=== PATIENT | male | born 1945 | race Caucasian/White ===

== ENCOUNTER → 2016-05-15 | Outpatient (REF) | payer MEDICARE ==
[~2016-05-15] MED LIST: /AMLO25TA PO; /PANT40TA PO; BISAC5TA PO; COLA50CA3 PO; LISI10TA4 PO; METF1000 PO; SENO8.6T9 PO; TAMS0.4C2 PO; ZEST10TA4 PO
== END ==
LOC: M LAB REF 12:39
PROVIDERS: ATTEND Internal Medicine Medical Oncology
DX: C61 Malignant neoplasm of prostate (principal)

== ENCOUNTER → 2016-06-12 | Outpatient (REF) | payer MEDICARE | LOC: M LAB REF 12:11 | PROVIDERS: ATTEND Internal Medicine Medical Oncology | DX: C61 Malignant neoplasm of prostate (principal) ==

== ENCOUNTER → 2016-06-26 | Outpatient (REF) | payer MEDICARE ==
[2016-06-26 15:59] LABS: ALBUMIN 3.3 GM/DL (3.2-5.2); ALBUMIN/GLOBULIN RATIO 0.85 (1.00-1.93); ALKALINE PHOSPHATASE 111 U/L (45-117); ALT/SGPT 13 U/L (12-78); ANION GAP 9 MEQ/L (8-16); AST/SGOT 11 U/L (15-37); BILIRUBIN,TOTAL 0.4 MG/DL (0.2-1.0); BLOOD UREA NITROGEN 26 MG/DL (7-18); CALCIUM LEVEL 8.8 MG/DL (8.8-10.2); CARBON DIOXIDE LEVEL 25 MEQ/L (21-32); CHLORIDE LEVEL 104 MEQ/L (98-107); CHOLESTEROL LEVEL 149 MG/DL (<200); CREATININE FOR GFR 1.18 MG/DL (0.70-1.30); GLOMERULAR FILTRATION RATE > 60.0 (>42); GLUCOSE, FASTING 174 MG/DL (83-110); POTASSIUM SERUM 4.9 MEQ/L (3.5-5.1); SODIUM LEVEL 138 MEQ/L (136-145); TOTAL PROTEIN 7.2 GM/DL (6.4-8.2); TRIGLYCERIDES LEVEL 153 MG/DL (<150)
== END ==
LOC: M SFHCSACK 08:16
PROVIDERS: ATTEND Physician Assistant
DX: I10 Essential (primary) hypertension (principal); E11.69 Type 2 diabetes mellitus with other specified complication; E78.2 Mixed hyperlipidemia

== ENCOUNTER → 2016-07-10 | Outpatient (REF) | payer MEDICARE ==
[2016-07-10 13:26] LABS: RETIC HEMOGLOBIN CONTENT CHr 31.9 PG (24-36); RETICULOCYTE % ADVIA2120 7.3 % (0.5-1.5)
== END ==
LOC: M LAB REF 12:45
PROVIDERS: ATTEND Internal Medicine Medical Oncology
DX: C61 Malignant neoplasm of prostate (principal)

== ENCOUNTER → 2016-08-10 | Outpatient (REF) | payer MEDICARE | LOC: M LAB REF 13:10 | PROVIDERS: ATTEND Internal Medicine Medical Oncology | DX: C61 Malignant neoplasm of prostate (principal) ==

== ENCOUNTER → 2016-09-07 | Outpatient (REF) | payer MEDICARE | LOC: M LAB REF 13:14 | PROVIDERS: ATTEND Internal Medicine Medical Oncology | DX: C61 Malignant neoplasm of prostate (principal) ==

== ENCOUNTER → 2016-10-05 | Outpatient (REF) | payer MEDICARE | LOC: M LAB REF 12:15 | PROVIDERS: ATTEND Internal Medicine Medical Oncology | DX: C61 Malignant neoplasm of prostate (principal) ==

== ENCOUNTER → 2016-10-23 | Outpatient (REF) | payer MEDICARE ==
[~2016-10-23] MED LIST changes: +ASPI81TA85 PO; +ENZALUTAMIDE PO; +HCTZ PO; +LUPR45IN IM; -METF1000 PO; +METF10004 PO; +XGEVINJ SC; +[UNRECOGNIZED DRUG - OTHER]; +[UNRECOGNIZED DRUG - OTHER] IM
[2016-10-23 15:46] LABS: ALBUMIN 3.4 GM/DL (3.2-5.2); ALBUMIN/GLOBULIN RATIO 0.83 (1.00-1.93); BILIRUBIN,TOTAL 0.2 MG/DL (0.2-1.0); CALCIUM LEVEL 8.4 MG/DL (8.8-10.2); CREATININE FOR GFR 1.46 MG/DL (0.70-1.30); GLOMERULAR FILTRATION RATE 50.8 (>42); TOTAL PROTEIN 7.5 GM/DL (6.4-8.2)
[2016-10-23 16:03] LABS: POTASSIUM SERUM 5.2 MEQ/L (3.5-5.1)
== END ==
LOC: M SFHCSACK 09:35
PROVIDERS: ATTEND Physician Assistant
DX: I10 Essential (primary) hypertension (principal); E11.69 Type 2 diabetes mellitus with other specified complication; E78.2 Mixed hyperlipidemia

== ENCOUNTER → 2016-11-02 | Outpatient (REF) | payer MEDICARE | LOC: M LAB REF 12:53 | PROVIDERS: ATTEND Internal Medicine Medical Oncology | DX: C61 Malignant neoplasm of prostate (principal) ==

== ENCOUNTER → 2016-11-30 | Outpatient (REF) | payer MEDICARE | LOC: M LAB REF 09:59 | PROVIDERS: ATTEND Internal Medicine Medical Oncology | DX: C61 Malignant neoplasm of prostate (principal); D64.9 Anemia, unspecified ==

== ENCOUNTER → 2016-12-01 | Outpatient (CLI) | payer MEDICARE ==
[~2016-12-01] MED LIST changes: +ACETAMINOPHEN TAB 650MG DOSE (2X325MG) As Ordered ONE; +ACETAMINOPHEN TAB 650MG DOSE (2X325MG) PO SCH; +diphenhydrAMINE 25 MG CAP As Ordered ONE; +diphenhydrAMINE 25 MG CAP PO SCH
== END ==
LOC: M RROUT 10:03
PROVIDERS: ATTEND Internal Medicine Medical Oncology
DX: D64.9 Anemia, unspecified (principal)
CPT/HCPCS: 36430; P9016

== ENCOUNTER → 2016-12-28 | Outpatient (REF) | payer MEDICARE ==
[~2016-12-28] MED LIST changes: -ACETAMINOPHEN TAB 650MG DOSE (2X325MG) As Ordered ONE; -ACETAMINOPHEN TAB 650MG DOSE (2X325MG) PO SCH; -diphenhydrAMINE 25 MG CAP As Ordered ONE; -diphenhydrAMINE 25 MG CAP PO SCH
== END ==
LOC: M LAB REF 10:01
PROVIDERS: ATTEND Internal Medicine Medical Oncology
DX: C61 Malignant neoplasm of prostate (principal)

== ENCOUNTER → 2017-01-25 | Outpatient (REF) | payer MEDICARE | LOC: M LAB REF 12:49 | PROVIDERS: ATTEND Internal Medicine Medical Oncology | DX: C61 Malignant neoplasm of prostate (principal) ==

== ENCOUNTER → 2017-01-30 | Outpatient (REF) | payer MEDICARE | LOC: M LAB REF 12:34 | PROVIDERS: ATTEND Internal Medicine Medical Oncology | DX: C61 Malignant neoplasm of prostate (principal); D64.9 Anemia, unspecified ==

== ENCOUNTER 2017-01-31 13:15 | Outpatient (CLI) | payer MEDICARE ==
[~2017-01-31] VITALS: Ht 172.7 cm; Wt 84.1 kg
[~2017-01-31 13:15] MED LIST changes: -ASPI81TA85 PO; -ENZALUTAMIDE PO; -LUPR45IN IM; -XGEVINJ SC; -[UNRECOGNIZED DRUG - OTHER]
[2017-01-31 13:35] VITALS: BP 159/78
[2017-01-31] MEDS ORDERED: diphenhydrAMINE 25 MG CAP PO ONE (13:45)
[2017-01-31] MEDS ORDERED: ACETAMINOPHEN TAB 650MG DOSE (2X325MG) PO ONE (13:45)
[2017-01-31] MEDS ORDERED: ENZALUTAMIDE PO (14:06)
[2017-01-31] MEDS ORDERED: LUPR45IN IM (14:06)
[2017-01-31] MEDS ORDERED: ASPI81TA85 PO (14:06)
[2017-01-31] MEDS ORDERED: XGEVINJ SC (14:06)
[2017-01-31] MEDS ORDERED: [UNRECOGNIZED DRUG - OTHER] (14:06)
[2017-01-31 16:45] VITALS: BP 160/72
[2017-01-31 18:20] VITALS: BP 159/78
== END 2017-01-31 19:00 | disposition home or self-care (01) ==
LOC: M OPCLI4PR 13:15 → M PED 13:30 → M OPCLI4PR 19:00
PROVIDERS: ATTEND Internal Medicine Medical Oncology
DX: D64.9 Anemia, unspecified (principal); C61 Malignant neoplasm of prostate; Z79.82 Long term (current) use of aspirin; Z79.899 Other long term (current) drug therapy
CPT/HCPCS: 36430; P9016

== ENCOUNTER → 2017-03-14 | Outpatient (REF) | payer MEDICARE ==
[~2017-03-14] MED LIST changes: +ASPI81TA85 PO; +ENZALUTAMIDE PO; +LUPR45IN IM; +XGEVINJ SC; +[UNRECOGNIZED DRUG - OTHER]
[2017-03-14 15:07] LABS: BASO % 0.4 % (0.0-1.0); EOS # 0.2 10^3/uL (0.0-0.50); EOS % 2.6 % (0.0-3.0); IMMATURE GRANULOCYTE % 0.3 % (0-0); LYMPH # 1.5 10^3/uL (1.5-4.5); LYMPH % 20.8 % (24.0-44.0); MEAN CORPUSCULAR HEMOGLOBIN 24.7 pg (27.0-33.0); MEAN CORPUSCULAR HGB CONC 30.6 g/dl (32.0-36.5); MEAN CORPUSCULAR VOLUME 80.5 fl (80.0-96.0); MONO # 0.6 10^3/uL (0.0-0.8); MONO % 8.4 % (0.0-5.0); NEUTROPHILS % 67.5 % (36.0-66.0); PLATELET COUNT, AUTOMATED 346 10^3/uL (150-450); RED CELL DISTRIBUTION WIDTH 17.8 % (11.5-14.5); WHITE BLOOD COUNT 7.4 10^3/uL (4.0-10.0)
[2017-03-14 15:21] LABS: ALBUMIN 3.3 GM/DL (3.2-5.2); ALBUMIN/GLOBULIN RATIO 0.8 (1.00-1.93); BILIRUBIN,TOTAL 0.2 MG/DL (0.2-1.0); CALCIUM LEVEL 8.4 MG/DL (8.8-10.2); CREATININE FOR GFR 1.43 MG/DL (0.70-1.30); POTASSIUM SERUM 4.9 MEQ/L (3.5-5.1); TOTAL PROTEIN 7.4 GM/DL (6.4-8.2)
== END ==
LOC: M SFHCSACK 08:34
PROVIDERS: ATTEND Physician Assistant
DX: I10 Essential (primary) hypertension (principal); E11.9 Type 2 diabetes mellitus without complications; E78.2 Mixed hyperlipidemia
CPT/HCPCS: 36415; 80053; 80061; 82043; 83036; 85025; G0463

== ENCOUNTER → 2017-03-22 | Outpatient (REF) | payer MEDICARE ==
[2017-03-22 14:36] LABS: PERCENT SATURATION 8.3 % (19.7-50.0)
== END ==
LOC: M LAB REF 13:44
PROVIDERS: ATTEND Internal Medicine Medical Oncology
DX: C61 Malignant neoplasm of prostate (principal)

== ENCOUNTER → 2017-04-26 | Outpatient (REF) | payer MEDICARE ==
[2017-04-26 14:10] LABS: TESTOSTERONE 14 NG/DL (241-827)
[2017-04-26 14:11] LABS: PROSTATIC SPECIFIC AG MONITOR 7.22 NG/ML (< 4.0)
== END ==
LOC: M LAB REF 13:35
DX: C61 Malignant neoplasm of prostate (principal)
CPT/HCPCS: 84403

== ENCOUNTER → 2017-05-24 | Outpatient (REF) | payer MEDICARE ==
[2017-05-24 16:07] LABS: PROSTATIC SPECIFIC AG MONITOR 8.94 NG/ML (< 4.0)
== END ==
LOC: M LAB REF 13:31
DX: C61 Malignant neoplasm of prostate (principal)
CPT/HCPCS: 84153

== ENCOUNTER → 2017-06-18 | Outpatient (REF) | payer MEDICARE ==
[2017-06-18 14:13] LABS: BASO % 0.5 % (0.0-1.0); EOS # 0.2 10^3/uL (0.0-0.50); EOS % 2.8 % (0.0-3.0); HEMATOCRIT 28.6 % (42.0-52.0); IMMATURE GRANULOCYTE % 0.3 % (0-3.0); LYMPH # 1.3 10^3/uL (1.5-4.5); LYMPH % 20.5 % (24.0-44.0); MEAN CORPUSCULAR HEMOGLOBIN 24.7 pg (27.0-33.0); MEAN CORPUSCULAR HGB CONC 31.5 g/dl (32.0-36.5); MEAN CORPUSCULAR VOLUME 78.6 fl (80.0-96.0); MONO # 0.5 10^3/uL (0.0-0.8); MONO % 8.1 % (0.0-5.0); NEUTROPHILS # 4.4 10^3/uL (1.8-7.7); NEUTROPHILS % 67.8 % (36.0-66.0); PLATELET COUNT, AUTOMATED 301 10^3/uL (150-450); RED BLOOD COUNT 3.64 10^6/uL (4.30-6.10); RED CELL DISTRIBUTION WIDTH 17.8 % (11.5-14.5); WHITE BLOOD COUNT 6.4 10^3/uL (4.0-10.0)
[2017-06-18 14:27] LABS: ALBUMIN 3.4 GM/DL (3.2-5.2); ALBUMIN/GLOBULIN RATIO 0.77 (1.00-1.93); ALKALINE PHOSPHATASE 110 U/L (45-117); ALT/SGPT 12 U/L (12-78); ANION GAP 7 MEQ/L (8-16); AST/SGOT 11 U/L (7-37); BILIRUBIN,TOTAL 0.2 MG/DL (0.2-1.0); BLOOD UREA NITROGEN 24 MG/DL (7-18); CALCIUM LEVEL 8.2 MG/DL (8.8-10.2); CARBON DIOXIDE LEVEL 28 MEQ/L (21-32); CHLORIDE LEVEL 100 MEQ/L (98-107); GLOMERULAR FILTRATION RATE 53.2 (>42); GLUCOSE, FASTING 119 MG/DL (70-100); POTASSIUM SERUM 4.9 MEQ/L (3.5-5.1); SODIUM LEVEL 135 MEQ/L (136-145); TOTAL PROTEIN 7.8 GM/DL (6.4-8.2)
[2017-06-18 14:29] LABS: TOTAL 25(OH) VITAMIN D 13.1 NG/ML (30.0-100.0); VITAMIN B12 LEVEL 299 PG/ML (247-911)
[2017-06-18 14:30] LABS: ESTIMATED AVERAGE GLUCOSE 140 MG/DL (60-110); HEMOGLOBIN A1c 6.5 %
== END ==
LOC: M SFHCSACK 08:20
DX: I10 Essential (primary) hypertension (principal); E78.2 Mixed hyperlipidemia; E11.9 Type 2 diabetes mellitus without complications; Z13.21 Encounter for screening for nutritional disorder; E55.9 Vitamin D deficiency, unspecified
CPT/HCPCS: 82607

== ENCOUNTER → 2017-06-21 | Outpatient (REF) | payer MEDICARE ==
[2017-06-21 14:39] LABS: PROSTATIC SPECIFIC AG MONITOR 9.85 NG/ML (< 4.0)
== END ==
LOC: M LAB REF 13:33
DX: C61 Malignant neoplasm of prostate (principal)
CPT/HCPCS: 84153

== ENCOUNTER → 2017-07-19 | Outpatient (REF) | payer MEDICARE | LOC: M LAB REF 13:23 | DX: C61 Malignant neoplasm of prostate (principal) | CPT/HCPCS: 84153 ==

== ENCOUNTER → 2017-07-26 | Outpatient (CLI) | payer MEDICARE ==
[~2017-07-26] MED LIST changes: -/AMLO25TA PO; -/PANT40TA PO; -ASPI81TA85 PO; -BISAC5TA PO; -COLA50CA3 PO; -ENZALUTAMIDE PO; +GASTROGRAFIN SOLUTION 30ML (Q9963) As Ordered; -HCTZ PO; +ISOVUE-370 76% 100ML VIAL (Q9967) As Ordered; -LISI10TA4 PO; -LUPR45IN IM; -METF10004 PO; -SENO8.6T9 PO; -TAMS0.4C2 PO; -XGEVINJ SC; -ZEST10TA4 PO; -[UNRECOGNIZED DRUG - OTHER]; -[UNRECOGNIZED DRUG - OTHER] IM
== END ==
LOC: M RAD 08:28
DX: C61 Malignant neoplasm of prostate (principal)
CPT/HCPCS: Q9963

== ENCOUNTER → 2017-08-02 | Outpatient (REF) | payer MEDICARE | LOC: M LAB REF 13:45 | DX: C61 Malignant neoplasm of prostate (principal) | CPT/HCPCS: 84153 ==

== ENCOUNTER 2017-09-20 12:29 | Outpatient (CLI) | payer MEDICARE ==
[2017-09-20] MEDS: diphenhydrAMINE 25 MG CAP PO ×2 (14:32)
[2017-09-20] MEDS: ACETAMINOPHEN TAB 650MG DOSE (2X325MG) PO ×2 (14:32)
[2017-09-20 16:45] LABS: IMMEDIATE SPIN CROSSMATCH 1 2
== END 2017-09-20 19:00 | disposition home or self-care (01) ==
LOC: M INFU 12:29
DX: C61 Malignant neoplasm of prostate (principal); C80.1 Malignant (primary) neoplasm, unspecified; D63.0 Anemia in neoplastic disease; Z79.82 Long term (current) use of aspirin; Z79.899 Other long term (current) drug therapy; E11.9 Type 2 diabetes mellitus without complications
CPT/HCPCS: 36430

== ENCOUNTER → 2017-10-03 | Outpatient (REF) | payer MEDICARE ==
[2017-10-03 13:16] LABS: FERRITIN 13 NG/ML (26-388); IRON (FE) 41 UG/DL (65-175); TOTAL IRON BINDING CAPACITY 343 UG/DL (250-450)
== END ==
LOC: M LAB REF 12:49
DX: C61 Malignant neoplasm of prostate (principal); C79.51 Secondary malignant neoplasm of bone
CPT/HCPCS: 83550

== ENCOUNTER → 2017-10-25 | Outpatient (REF) | payer MEDICARE | LOC: M LAB REF 13:19 | DX: C61 Malignant neoplasm of prostate (principal); C79.51 Secondary malignant neoplasm of bone | CPT/HCPCS: 84153 ==

== ENCOUNTER → 2017-10-30 | Outpatient (REF) | payer MEDICARE ==
[2017-10-30 13:45] LABS: APPEARANCE, URINE CLEAR (CLEAR); BACTERIA, URINE AUTO NEGATIVE (NEGATIVE); BILIRUBIN, URINE AUTO NEGATIVE (NEGATIVE); BLOOD, URINE BLOOD 1+ (NEGATIVE); COLOR, URINE STRAW (YELLOW); GLUCOSE, URINE (UA) AUTO NEGATIVE (NEGATIVE); KETONE, URINE AUTO NEGATIVE (NEGATIVE); LEUKOCYTE ESTERASE, URINE AUTO NEGATIVE (NEGATIVE); NITRITE, URINE AUTO NEGATIVE (NEGATIVE); PROTEIN, URINE AUTO 1+ mg/dL (NEGATIVE); RBC, URINE AUTO 6 /HPF (0-3); SPECIFIC GRAVITY URINE AUTO 1.006 (1.002-1.035); SQUAMOUS EPITHELIAL CELL UR AU 0 /HPF (0-6); UROBILINOGEN, URINE AUTO 0.2 mg/dL (0.0-2.0); WBC, URINE AUTO 2 /HPF (0-3)
== END ==
LOC: M LAB REF 13:25
DX: C79.51 Secondary malignant neoplasm of bone (principal); C61 Malignant neoplasm of prostate
CPT/HCPCS: 81001

== ENCOUNTER → 2017-11-01 | Outpatient (REF) | payer MEDICARE | LOC: M LAB REF 17:27 | DX: N18.5 Chronic kidney disease, stage 5 (principal); N39.0 Urinary tract infection, site not specified | CPT/HCPCS: 87086 ==

== ENCOUNTER → 2017-11-02 | Outpatient (CLI) | payer MEDICARE | LOC: M RAD 13:54 | DX: C61 Malignant neoplasm of prostate (principal); N13.30 Unspecified hydronephrosis; R59.0 Localized enlarged lymph nodes | CPT/HCPCS: 74176 ==

== ENCOUNTER 2017-11-14 10:12 | Inpatient (IN) | payer MEDICARE, OTHER ==
[2017-11-14] MEDS: NS 1,000 ML IV (11:01)
[2017-11-14] MEDS: NS 500 ML IV (11:11)
[2017-11-14 11:13] LABS: BASO % 0.4 % (0.0-1.0); EOS # 0.3 10^3/uL (0.0-0.50); EOS % 4.2 % (0.0-3.0); HEMATOCRIT 26.2 % (42.0-52.0); HEMOGLOBIN 8.2 g/dl (13.5-17.5); IMMATURE GRANULOCYTE % 0.3 % (0-3.0); LYMPH # 0.8 10^3/uL (1.5-4.5); LYMPH % 11.5 % (24.0-44.0); MEAN CORPUSCULAR HGB CONC 31.3 g/dl (32.0-36.5); MEAN CORPUSCULAR VOLUME 79.9 fl (80.0-96.0); MONO # 0.4 10^3/uL (0.0-0.8); MONO % 5.2 % (0.0-5.0); NEUTROPHILS # 5.4 10^3/uL (1.8-7.7); NEUTROPHILS % 78.4 % (36.0-66.0); PLATELET COUNT, AUTOMATED 270 10^3/uL (150-450); RED BLOOD COUNT 3.28 10^6/uL (4.30-6.10); RED CELL DISTRIBUTION WIDTH 21.9 % (11.5-14.5); WHITE BLOOD COUNT 6.9 10^3/uL (4.0-10.0)
[2017-11-14 11:35] LABS: INR 1.13; PROTHROMBIN TIME 14.7 SECONDS (12.1-14.4)
[2017-11-14 11:40] LABS: ALBUMIN 2.8 GM/DL (3.2-5.2); ALKALINE PHOSPHATASE 109 U/L (45-117); ALT/SGPT 14 U/L (12-78); ANION GAP 9 MEQ/L (8-16); AST/SGOT 14 U/L (7-37); BILIRUBIN,DIRECT < 0.1 MG/DL (0.0-0.2); BILIRUBIN,TOTAL 0.2 MG/DL (0.2-1.0); BLOOD UREA NITROGEN 70 MG/DL (7-18); CALCIUM LEVEL 5.4 MG/DL (8.8-10.2); CARBON DIOXIDE LEVEL 17 MEQ/L (21-32); CHLORIDE LEVEL 112 MEQ/L (98-107); CK-MB VALUE MASS 1.2 NG/ML (<3.6); CPK CREATINE PHOSPHOKINASE 99 U/L (39-308); GLOMERULAR FILTRATION RATE 8.2 (>42); GLUCOSE, FASTING 92 MG/DL (70-100); LIPASE 134 U/L (73-393); MB/CK RELATIVE INDEX 1.21 (< OR =4); SODIUM LEVEL 138 MEQ/L (136-145); TOTAL PROTEIN 8.4 GM/DL (6.4-8.2); TROPONIN I < 0.02 NG/ML (< 0.10)
[2017-11-14] MEDS: SOD POLYSTYRENE SULFONATE SUSP 15 GM/60 ML UD PO (12:42)
[2017-11-14] MEDS: DEXTROSE 50% 50 ML SYRINGE IV (12:43)
[2017-11-14] MEDS: HumuLIN R (REGULAR) INSULIN (NovoLIN R) **100U/ML** PER UNIT SC (12:43)
[2017-11-14] MEDS: CALCIUM GLUCONATE 1,000 MG in D5W MINI-BAG PLUS 100 ML IV ×2 (12:44→20:22)
[2017-11-14 12:45] LABS: PHOSPHORUS LEVEL 6.9 MG/DL (2.5-4.9)
[2017-11-14] MEDS: SODIUM BICARBONATE 8.4% INJ 50 ML SYRINGE IV (13:13)
[2017-11-14] MEDS ORDERED: DEXTROSE 50% 50 ML SYRINGE IV (13:30)
[2017-11-14] MEDS ORDERED: GLUCOSE 4 GM CHEW TABLET PO (13:30)
[2017-11-14] MEDS ORDERED: GLUCAGON FOR INJ 1 MG VIAL (J1610) SC (13:30)
[2017-11-14] MEDS ORDERED: MORPHINE 4 MG/ML 1ML VIAL/SYRINGE (J2270) IV (13:45)
[2017-11-14] MEDS ORDERED: ACETAMINOPHEN TAB 650MG DOSE (2X325MG) PO (13:45)
[2017-11-14 13:49] LABS: OSMOLALITY URINE 244 MOSM/KG (500-800)
[2017-11-14 13:50] LABS: AMORPHOUS SEDIMENT RFX SMALL (NEGATIVE); KETONE, URINE AUTO RFX NEGATIVE (NEGATIVE); LEUKOCYTE ESTERASE UR AUTO RFX NEGATIVE (NEGATIVE); NITRITE, URINE AUTO RFX NEGATIVE (NEGATIVE); RBC, URINE AUTO RFX 0 /HPF (0-3); SPECIFIC GRAVITY UR AUTO RFX 1.008 (1.002-1.035); SQUAM EPITHELIAL CELL UR AURFX 0 /HPF (0-6); WBC, URINE AUTO RFX 0 /HPF (0-3)
[2017-11-14] MEDS: HYDROMORPHONE HCL 0.5 MG/ 0.5 ML SYRINGE (J1170 PER 1) IV (13:52)
[2017-11-14] MEDS: ONDANSETRON 4MG/2ML VIAL (J2405) IV (13:56)
[2017-11-14 14:14] LABS: CHLORIDE,RANDOM URINE 39 MEQ/L; CREATININE,RANDOM URINE 47.5 MG/DL; POTASSIUM RANDOM URINE 18.6 MEQ/L; SODIUM,RANDOM URINE 46 MEQ/L; TOTAL PROTEIN,RANDOM URINE 30.9 MG/DL (0.0-12.0)
[2017-11-14] MEDS: SODIUM BICARBONATE 100 MEQ in D5W 1,000 ML IV (14:37)
[2017-11-14 15:37] LABS: ANION GAP 10 MEQ/L (8-16); BLOOD UREA NITROGEN 70 MG/DL (7-18); CALCIUM LEVEL 5.5 MG/DL (8.8-10.2); CARBON DIOXIDE LEVEL 18 MEQ/L (21-32); CHLORIDE LEVEL 115 MEQ/L (98-107); CREATININE FOR GFR 6.89 MG/DL (0.70-1.30); GLOMERULAR FILTRATION RATE 8.5 (>42); GLUCOSE, FASTING 83 MG/DL (70-100); SODIUM LEVEL 143 MEQ/L (136-145)
[2017-11-14 15:38] LABS: POTASSIUM SERUM 5.7 MEQ/L (3.5-5.1)
[2017-11-14] MEDS ORDERED: LIDOCAINE 1% MDV 20ML VIAL As Ordered (16:17)
[2017-11-14] MEDS ORDERED: ISOVUE-300 61% 50ML VIAL (Q9967) As Ordered (16:17)
[2017-11-14] MEDS ORDERED: MIDAZOLAM INJ 2 MG/2 ML VIAL (J2250) As Ordered (16:22)
[2017-11-14] MEDS ORDERED: fentaNYL 100 MCG/2 ML INJECTION (J3010) As Ordered (16:22)
[2017-11-14] MEDS ORDERED: fentaNYL 100 MCG/2 ML INJECTION (J3010) IV (18:00)
[2017-11-14] MEDS ORDERED: ONDANSETRON 4MG/2ML VIAL (J2405) IV (18:00)
[2017-11-14] MEDS: LR 1,000 ML IV (18:00)
[2017-11-14] MEDS: HumaLOG INSULIN (NovoLOG) PER UNIT SC ×2 (18:30→20:24)
[2017-11-14 19:04] LABS: CPK CREATINE PHOSPHOKINASE 106 U/L (39-308); TROPONIN I < 0.02 NG/ML (< 0.10)
[2017-11-14 19:15] LABS: ANION GAP 8 MEQ/L (8-16); BLOOD UREA NITROGEN 71 MG/DL (7-18); CALCIUM LEVEL 5.4 MG/DL (8.8-10.2); CARBON DIOXIDE LEVEL 20 MEQ/L (21-32); CHLORIDE LEVEL 112 MEQ/L (98-107); CREATININE FOR GFR 6.63 MG/DL (0.70-1.30); GLOMERULAR FILTRATION RATE 8.8 (>42); GLUCOSE, FASTING 80 MG/DL (70-100); SODIUM LEVEL 140 MEQ/L (136-145)
[2017-11-14 19:16] LABS: CK-MB VALUE MASS 1.2 NG/ML (<3.6); MB/CK RELATIVE INDEX 1.13 (< OR =4)
[2017-11-14 19:17] LABS: POTASSIUM SERUM 5.8 MEQ/L (3.5-5.1)
[2017-11-14 20:10] LABS: BEDSIDE GLUCOSE 86 MG/DL (83-110)
[2017-11-14] MEDS: SENOKOT S TAB PO (20:24)
[2017-11-14 20:26] LABS: BEDSIDE GLUCOSE 163 MG/DL (83-110)
[2017-11-14] MEDS: TAMSULOSIN 0.4 MG CAP PO (20:27)
[2017-11-14] MEDS: NICOTINE 14 MG/24 HR TRANSDERMAL TD (21:00)
[2017-11-14] MEDS: PERCOCET 5MG/325MG TAB PO (22:33)
[2017-11-15 00:38] LABS: ANION GAP 7 MEQ/L (8-16); BLOOD UREA NITROGEN 63 MG/DL (7-18); CALCIUM LEVEL 5.3 MG/DL (8.8-10.2); CARBON DIOXIDE LEVEL 22 MEQ/L (21-32); CHLORIDE LEVEL 110 MEQ/L (98-107); CPK CREATINE PHOSPHOKINASE 91 U/L (39-308); CREATININE FOR GFR 5.88 MG/DL (0.70-1.30); GLOMERULAR FILTRATION RATE 10.2 (>42); GLUCOSE, FASTING 131 MG/DL (70-100); POTASSIUM SERUM 4.9 MEQ/L (3.5-5.1); SODIUM LEVEL 139 MEQ/L (136-145); TROPONIN I < 0.02 NG/ML (< 0.10)
[2017-11-15 00:39] LABS: CK-MB VALUE MASS 1.2 NG/ML (<3.6); MB/CK RELATIVE INDEX 1.31 (< OR =4)
[2017-11-15] MEDS: SODIUM BICARBONATE 100 MEQ in D5W 1,000 ML IV (00:41)
[2017-11-15] MEDS: CALCIUM GLUCONATE 1,000 MG in D5W MINI-BAG PLUS 100 ML IV ×2 (01:51→05:26)
[2017-11-15] MEDS: PERCOCET 5MG/325MG TAB PO ×3 (03:00→21:11)
[2017-11-15 04:03] LABS: HEMATOCRIT 21.1 % (42.0-52.0); MEAN CORPUSCULAR HEMOGLOBIN 25.1 pg (27.0-33.0); MEAN CORPUSCULAR HGB CONC 31.8 g/dl (32.0-36.5); PLATELET COUNT, AUTOMATED 195 10^3/uL (150-450); RED BLOOD COUNT 2.67 10^6/uL (4.30-6.10); WHITE BLOOD COUNT 7.2 10^3/uL (4.0-10.0)
[2017-11-15 04:04] LABS: HEMOGLOBIN 6.7 g/dl (13.5-17.5)
[2017-11-15 04:23] LABS: ALBUMIN 2.2 GM/DL (3.2-5.2); ANION GAP 9 MEQ/L (8-16); BLOOD UREA NITROGEN 60 MG/DL (7-18); CALCIUM LEVEL 5.3 MG/DL (8.8-10.2); CARBON DIOXIDE LEVEL 23 MEQ/L (21-32); CHLORIDE LEVEL 107 MEQ/L (98-107); CREATININE FOR GFR 5.37 MG/DL (0.70-1.30); GLOMERULAR FILTRATION RATE 11.3 (>42); GLUCOSE, FASTING 152 MG/DL (70-100); MAGNESIUM LEVEL 1.8 MG/DL (1.8-2.4); PHOSPHORUS LEVEL 5.9 MG/DL (2.5-4.9); POTASSIUM SERUM 4.4 MEQ/L (3.5-5.1); SODIUM LEVEL 139 MEQ/L (136-145)
[2017-11-15] MEDS: HYDROMORPHONE HCL 0.5 MG/ 0.5 ML SYRINGE (J1170 PER 1) IV ×3 (05:35→23:32)
[2017-11-15 06:25] LABS: IMMEDIATE SPIN CROSSMATCH 1 2
[2017-11-15 08:10] LABS: BEDSIDE GLUCOSE 130 MG/DL (83-110)
[2017-11-15] MEDS: HumaLOG INSULIN (NovoLOG) PER UNIT SC ×5 (08:13→21:00)
[2017-11-15] MEDS: SENOKOT S TAB PO ×2 (09:00→19:57)
[2017-11-15] MEDS ORDERED: ENTER DRUG NAME HERE (PATIENT'S OWN MED) PO (09:00)
[2017-11-15] MEDS ORDERED: CALCIUM/VITAMIN D 500 MG TAB PO (09:00)
[2017-11-15] MEDS: CALCITRIOL 0.25 MCG CAP (S0169) PO (09:36)
[2017-11-15] MEDS: CALCIUM/VITAMIN D 500 MG TAB PO ×2 (09:36→21:03)
[2017-11-15] MEDS: HEPARIN SOD (PORCINE) 5000 UNITS/ML VIAL SC ×2 (09:37→21:03)
[2017-11-15] MEDS ORDERED: NS 0.45% IV (11:00)
[2017-11-15] MEDS ORDERED: CALCIUM GLUCONATE IV (11:00)
[2017-11-15] MEDS: CALCIUM GLUCONATE IV (11:40)
[2017-11-15] MEDS: NS 0.45% IV (11:40)
[2017-11-15] MEDS: ONDANSETRON 4MG/2ML VIAL (J2405) IV ×2 (11:40→23:39)
[2017-11-15] MEDS ORDERED: PATIROMER SORBITEX CALCIUM 8.4 GM POWDER PACKET (VELTASSA) PO (12:00)
[2017-11-15 12:12] LABS: HEMATOCRIT 26.2 % (42.0-52.0); HEMOGLOBIN 8.6 g/dl (13.5-17.5)
[2017-11-15 12:26] LABS: IONIZED CALCIUM 3.2 MG/DL (4.5-5.3)
[2017-11-15 12:32] LABS: ALBUMIN 2.4 GM/DL (3.2-5.2); ANION GAP 9 MEQ/L (8-16); BLOOD UREA NITROGEN 50 MG/DL (7-18); CALCIUM LEVEL 5.8 MG/DL (8.8-10.2); CARBON DIOXIDE LEVEL 24 MEQ/L (21-32); CHLORIDE LEVEL 107 MEQ/L (98-107); CREATININE FOR GFR 4.67 MG/DL (0.70-1.30); GLOMERULAR FILTRATION RATE 13.2 (>42); GLUCOSE, FASTING 91 MG/DL (70-100); PHOSPHORUS LEVEL 5.4 MG/DL (2.5-4.9); POTASSIUM SERUM 4.5 MEQ/L (3.5-5.1); SODIUM LEVEL 140 MEQ/L (136-145)
[2017-11-15 12:41] LABS: BEDSIDE GLUCOSE 115 MG/DL (83-110)
[2017-11-15] MEDS ORDERED: SLF 3 ML SYR IV ×3 (17:30→22:00)
[2017-11-15 17:46] LABS: BEDSIDE GLUCOSE 151 MG/DL (83-110)
[2017-11-15 18:31] LABS: IONIZED CALCIUM 3.6 MG/DL (4.5-5.3)
[2017-11-15 18:34] LABS: HEMATOCRIT 29.7 % (42.0-52.0); HEMOGLOBIN 9.7 g/dl (13.5-17.5)
[2017-11-15 18:58] LABS: ALBUMIN 2.5 GM/DL (3.2-5.2); ANION GAP 10 MEQ/L (8-16); BLOOD UREA NITROGEN 47 MG/DL (7-18); CALCIUM LEVEL 6.4 MG/DL (8.8-10.2); CARBON DIOXIDE LEVEL 22 MEQ/L (21-32); CHLORIDE LEVEL 108 MEQ/L (98-107); CREATININE FOR GFR 4.36 MG/DL (0.70-1.30); GLOMERULAR FILTRATION RATE 14.3 (>42); GLUCOSE, FASTING 146 MG/DL (70-100); PHOSPHORUS LEVEL 5.3 MG/DL (2.5-4.9); POTASSIUM SERUM 4.6 MEQ/L (3.5-5.1); SODIUM LEVEL 140 MEQ/L (136-145)
[2017-11-15] MEDS: SLF 3 ML SYR IV (21:03)
[2017-11-15] MEDS: TAMSULOSIN 0.4 MG CAP PO (21:03)
[2017-11-15 21:04] LABS: BEDSIDE GLUCOSE 93 MG/DL (83-110)
[2017-11-15] MEDS: NICOTINE 14 MG/24 HR TRANSDERMAL TD (23:31)
[2017-11-15 23:40] LABS: IONIZED CALCIUM 3.7 MG/DL (4.5-5.3)
[2017-11-15 23:40] LABS: HEMOGLOBIN 9.2 g/dl (13.5-17.5)
[2017-11-16] LABS: ALBUMIN 2.4 GM/DL (3.2-5.2); ANION GAP 9 MEQ/L (8-16); BLOOD UREA NITROGEN 44 MG/DL (7-18); CALCIUM LEVEL 6.5 MG/DL (8.8-10.2); CARBON DIOXIDE LEVEL 24 MEQ/L (21-32); CHLORIDE LEVEL 109 MEQ/L (98-107); CREATININE FOR GFR 4.07 MG/DL (0.70-1.30); GLOMERULAR FILTRATION RATE 15.5 (>42); GLUCOSE, FASTING 111 MG/DL (70-100); PHOSPHORUS LEVEL 5.5 MG/DL (2.5-4.9); POTASSIUM SERUM 4.8 MEQ/L (3.5-5.1); SODIUM LEVEL 142 MEQ/L (136-145)
[2017-11-16] MEDS: CALCIUM GLUCONATE IV ×3 (00:44→22:44)
[2017-11-16] MEDS: NS 0.45% IV ×3 (00:44→22:44)
[2017-11-16] MEDS: PERCOCET 5MG/325MG TAB PO ×4 (02:41→21:24)
[2017-11-16 05:10] LABS: IONIZED CALCIUM 3.7 MG/DL (4.5-5.3)
[2017-11-16 05:12] LABS: HEMATOCRIT 27.6 % (42.0-52.0); HEMOGLOBIN 9.2 g/dl (13.5-17.5)
[2017-11-16 05:31] LABS: ALBUMIN 2.4 GM/DL (3.2-5.2); ANION GAP 11 MEQ/L (8-16); BLOOD UREA NITROGEN 41 MG/DL (7-18); CALCIUM LEVEL 6.6 MG/DL (8.8-10.2); CARBON DIOXIDE LEVEL 22 MEQ/L (21-32); CHLORIDE LEVEL 109 MEQ/L (98-107); CREATININE FOR GFR 3.78 MG/DL (0.70-1.30); GLOMERULAR FILTRATION RATE 16.9 (>42); GLUCOSE, FASTING 133 MG/DL (70-100); PHOSPHORUS LEVEL 4.7 MG/DL (2.5-4.9); POTASSIUM SERUM 4.4 MEQ/L (3.5-5.1); SODIUM LEVEL 142 MEQ/L (136-145)
[2017-11-16] MEDS: SLF 3 ML SYR IV ×3 (06:00→21:25)
[2017-11-16 07:45] LABS: ESTIMATED AVERAGE GLUCOSE 128 MG/DL (60-110); HEMOGLOBIN A1c 6.1 %
[2017-11-16] MEDS: HEPARIN SOD (PORCINE) 5000 UNITS/ML VIAL SC ×2 (08:25→21:24)
[2017-11-16] MEDS: CALCITRIOL 0.25 MCG CAP (S0169) PO (08:25)
[2017-11-16] MEDS: SENOKOT S TAB PO ×2 (08:26→21:24)
[2017-11-16] MEDS: HumaLOG INSULIN (NovoLOG) PER UNIT SC ×4 (08:26→21:00)
[2017-11-16] MEDS: CALCIUM/VITAMIN D 500 MG TAB PO ×2 (08:26→21:23)
[2017-11-16] MEDS: HYDROMORPHONE HCL 0.5 MG/ 0.5 ML SYRINGE (J1170 PER 1) IV (09:56)
[2017-11-16] MEDS: ONDANSETRON 4MG/2ML VIAL (J2405) IV (11:14)
[2017-11-16 12:19] LABS: HEMATOCRIT 25.5 % (42.0-52.0); HEMOGLOBIN 8.5 g/dl (13.5-17.5)
[2017-11-16 12:47] LABS: BEDSIDE GLUCOSE 125 MG/DL (83-110)
[2017-11-16 13:30] LABS: ALBUMIN 2.2 GM/DL (3.2-5.2); ANION GAP 8 MEQ/L (8-16); BLOOD UREA NITROGEN 35 MG/DL (7-18); CALCIUM LEVEL 7.3 MG/DL (8.8-10.2); CARBON DIOXIDE LEVEL 25 MEQ/L (21-32); CHLORIDE LEVEL 108 MEQ/L (98-107); GLOMERULAR FILTRATION RATE 18.5 (>42); GLUCOSE, FASTING 118 MG/DL (70-100); PHOSPHORUS LEVEL 4.8 MG/DL (2.5-4.9); POTASSIUM SERUM 4.5 MEQ/L (3.5-5.1); SODIUM LEVEL 141 MEQ/L (136-145)
[2017-11-16 16:41] LABS: BEDSIDE GLUCOSE 140 MG/DL (83-110)
[2017-11-16 17:51] LABS: IONIZED CALCIUM 4.3 MG/DL (4.5-5.3)
[2017-11-16 17:51] LABS: HEMOGLOBIN 8.5 g/dl (13.5-17.5)
[2017-11-16 18:37] LABS: ALBUMIN 2.3 GM/DL (3.2-5.2); ANION GAP 6 MEQ/L (8-16); BLOOD UREA NITROGEN 33 MG/DL (7-18); CALCIUM LEVEL 7.3 MG/DL (8.8-10.2); CARBON DIOXIDE LEVEL 27 MEQ/L (21-32); CHLORIDE LEVEL 106 MEQ/L (98-107); CREATININE FOR GFR 3.16 MG/DL (0.70-1.30); GLOMERULAR FILTRATION RATE 20.8 (>42); GLUCOSE, FASTING 113 MG/DL (70-100); PHOSPHORUS LEVEL 4.5 MG/DL (2.5-4.9); POTASSIUM SERUM 4.4 MEQ/L (3.5-5.1); SODIUM LEVEL 139 MEQ/L (136-145)
[2017-11-16 21:23] LABS: BEDSIDE GLUCOSE 175 MG/DL (83-110)
[2017-11-16] MEDS: TAMSULOSIN 0.4 MG CAP PO (21:24)
[2017-11-16] MEDS: amLODIPine 5 MG TAB PO (21:45)
[2017-11-16] MEDS: PROCHLORPERAZINE 5 MG TAB (S0183) PO (21:45)
[2017-11-17 00:15] LABS: IONIZED CALCIUM 4.3 MG/DL (4.5-5.3)
[2017-11-17 00:46] LABS: ALBUMIN 2.2 GM/DL (3.2-5.2); ANION GAP 6 MEQ/L (8-16); BLOOD UREA NITROGEN 33 MG/DL (7-18); CALCIUM LEVEL 7.9 MG/DL (8.8-10.2); CARBON DIOXIDE LEVEL 28 MEQ/L (21-32); CHLORIDE LEVEL 106 MEQ/L (98-107); GLOMERULAR FILTRATION RATE 21.3 (>42); GLUCOSE, FASTING 173 MG/DL (70-100); PHOSPHORUS LEVEL 4.5 MG/DL (2.5-4.9); POTASSIUM SERUM 4.1 MEQ/L (3.5-5.1); SODIUM LEVEL 140 MEQ/L (136-145)
[2017-11-17] MEDS: PERCOCET 5MG/325MG TAB PO ×3 (01:26→21:20)
[2017-11-17 04:58] LABS: HEMATOCRIT 26.7 % (42.0-52.0); HEMOGLOBIN 8.5 g/dl (13.5-17.5); MEAN CORPUSCULAR HEMOGLOBIN 25.5 pg (27.0-33.0); MEAN CORPUSCULAR HGB CONC 31.8 g/dl (32.0-36.5); MEAN CORPUSCULAR VOLUME 80.2 fl (80.0-96.0); PLATELET COUNT, AUTOMATED 209 10^3/uL (150-450); RED BLOOD COUNT 3.33 10^6/uL (4.30-6.10); WHITE BLOOD COUNT 5.9 10^3/uL (4.0-10.0)
[2017-11-17 05:03] LABS: IONIZED CALCIUM 4.6 MG/DL (4.5-5.3)
[2017-11-17 05:12] LABS: ALBUMIN 2.2 GM/DL (3.2-5.2); ANION GAP 7 MEQ/L (8-16); BLOOD UREA NITROGEN 30 MG/DL (7-18); CALCIUM LEVEL 8.3 MG/DL (8.8-10.2); CARBON DIOXIDE LEVEL 26 MEQ/L (21-32); CHLORIDE LEVEL 106 MEQ/L (98-107); CREATININE FOR GFR 2.97 MG/DL (0.70-1.30); GLOMERULAR FILTRATION RATE 22.3 (>42); GLUCOSE, FASTING 111 MG/DL (70-100); SODIUM LEVEL 139 MEQ/L (136-145)
[2017-11-17] MEDS: SLF 3 ML SYR IV ×3 (06:00→21:19)
[2017-11-17] MEDS: HEPARIN SOD (PORCINE) 5000 UNITS/ML VIAL SC ×2 (08:03→21:20)
[2017-11-17] MEDS: CALCITRIOL 0.25 MCG CAP (S0169) PO (08:03)
[2017-11-17] MEDS: CALCIUM/VITAMIN D 500 MG TAB PO ×2 (08:03→21:00)
[2017-11-17] MEDS: HumaLOG INSULIN (NovoLOG) PER UNIT SC ×4 (08:04→21:00)
[2017-11-17] MEDS: SENOKOT S TAB PO ×2 (08:04→21:18)
[2017-11-17] MEDS: CALCIUM GLUCONATE IV ×2 (09:15→14:23)
[2017-11-17] MEDS: NS 0.45% IV ×2 (09:15→14:23)
[2017-11-17 10:42] LABS: IMMEDIATE SPIN CROSSMATCH 1 1
[2017-11-17 11:40] LABS: BEDSIDE GLUCOSE 157 MG/DL (83-110)
[2017-11-17 13:37] LABS: HEMATOCRIT 30.2 % (42.0-52.0); HEMOGLOBIN 9.6 g/dl (13.5-17.5)
[2017-11-17 17:01] LABS: BEDSIDE GLUCOSE 150 MG/DL (83-110)
[2017-11-17] MEDS: TAMSULOSIN 0.4 MG CAP PO (21:18)
[2017-11-17] MEDS: amLODIPine 5 MG TAB PO (21:19)
[2017-11-17 21:25] LABS: BEDSIDE GLUCOSE 177 MG/DL (83-110)
[2017-11-18] MEDS: NS 0.45% IV ×2 (00:06→09:38)
[2017-11-18] MEDS: CALCIUM GLUCONATE IV ×2 (00:06→09:38)
[2017-11-18] MEDS: PERCOCET 5MG/325MG TAB PO ×3 (02:25→20:37)
[2017-11-18 04:34] LABS: MEAN CORPUSCULAR HEMOGLOBIN 26.7 pg (27.0-33.0); MEAN CORPUSCULAR HGB CONC 33.3 g/dl (32.0-36.5); MEAN CORPUSCULAR VOLUME 80.1 fl (80.0-96.0); PLATELET COUNT, AUTOMATED 209 10^3/uL (150-450); RED BLOOD COUNT 3.37 10^6/uL (4.30-6.10); RED CELL DISTRIBUTION WIDTH 19.3 % (11.5-14.5); WHITE BLOOD COUNT 6.5 10^3/uL (4.0-10.0)
[2017-11-18 04:35] LABS: IONIZED CALCIUM 4.8 MG/DL (4.5-5.3)
[2017-11-18] MEDS: SLF 3 ML SYR IV ×3 (06:00→20:40)
[2017-11-18 08:21] LABS: ANION GAP 7 MEQ/L (8-16); BLOOD UREA NITROGEN 26 MG/DL (7-18); CALCIUM LEVEL 9.3 MG/DL (8.8-10.2); CARBON DIOXIDE LEVEL 26 MEQ/L (21-32); CHLORIDE LEVEL 104 MEQ/L (98-107); GLOMERULAR FILTRATION RATE 23.9 (>42); GLUCOSE, FASTING 112 MG/DL (70-100); MAGNESIUM LEVEL 1.3 MG/DL (1.8-2.4); POTASSIUM SERUM 4.2 MEQ/L (3.5-5.1); SODIUM LEVEL 137 MEQ/L (136-145)
[2017-11-18 08:21] LABS: BEDSIDE GLUCOSE 140 MG/DL (83-110)
[2017-11-18] MEDS: HumaLOG INSULIN (NovoLOG) PER UNIT SC ×4 (08:54→20:40)
[2017-11-18] MEDS: SENOKOT S TAB PO ×2 (08:54→20:37)
[2017-11-18] MEDS: CALCITRIOL 0.25 MCG CAP (S0169) PO (08:55)
[2017-11-18] MEDS: CALCIUM/VITAMIN D 500 MG TAB PO ×2 (08:55→20:37)
[2017-11-18] MEDS: HEPARIN SOD (PORCINE) 5000 UNITS/ML VIAL SC ×2 (08:56→20:40)
[2017-11-18] MEDS ORDERED: MAGNESIUM SULFATE 1 GM/100 ML D5W BAG (10MG/ML) (J3475) As Ordered (11:04)
[2017-11-18 11:27] LABS: BEDSIDE GLUCOSE 171 MG/DL (83-110)
[2017-11-18] MEDS: MAG SULF 1GM/100ML (MAG RUN) 1 GM in APPROPRIATE DILUENT 1 EA IV (12:36)
[2017-11-18] MEDS: ONDANSETRON 4MG/2ML VIAL (J2405) IV (15:53)
[2017-11-18 17:02] LABS: BEDSIDE GLUCOSE 128 MG/DL (83-110)
[2017-11-18 20:30] LABS: BEDSIDE GLUCOSE 210 MG/DL (83-110)
[2017-11-18] MEDS: TAMSULOSIN 0.4 MG CAP PO (20:37)
[2017-11-18] MEDS: NICOTINE 14 MG/24 HR TRANSDERMAL TD (20:47)
[2017-11-19] MEDS: PERCOCET 5MG/325MG TAB PO ×4 (02:17→20:40)
[2017-11-19 04:34] LABS: HEMATOCRIT 27.4 % (42.0-52.0); HEMOGLOBIN 9.2 g/dl (13.5-17.5); MEAN CORPUSCULAR HEMOGLOBIN 26.5 pg (27.0-33.0); MEAN CORPUSCULAR HGB CONC 33.6 g/dl (32.0-36.5); PLATELET COUNT, AUTOMATED 231 10^3/uL (150-450); RED BLOOD COUNT 3.47 10^6/uL (4.30-6.10); RED CELL DISTRIBUTION WIDTH 19.2 % (11.5-14.5); WHITE BLOOD COUNT 5.6 10^3/uL (4.0-10.0)
[2017-11-19 04:36] LABS: IONIZED CALCIUM 4.8 MG/DL (4.5-5.3)
[2017-11-19 04:48] LABS: ALBUMIN 2.1 GM/DL (3.2-5.2); ANION GAP 7 MEQ/L (8-16); BLOOD UREA NITROGEN 24 MG/DL (7-18); CALCIUM LEVEL 8.9 MG/DL (8.8-10.2); CARBON DIOXIDE LEVEL 25 MEQ/L (21-32); CHLORIDE LEVEL 105 MEQ/L (98-107); CREATININE FOR GFR 2.51 MG/DL (0.70-1.30); GLOMERULAR FILTRATION RATE 27.1 (>42); GLUCOSE, FASTING 112 MG/DL (70-100); PHOSPHORUS LEVEL 5.3 MG/DL (2.5-4.9); POTASSIUM SERUM 4.1 MEQ/L (3.5-5.1); SODIUM LEVEL 137 MEQ/L (136-145)
[2017-11-19] MEDS: SLF 3 ML SYR IV ×3 (06:22→21:59)
[2017-11-19] MEDS: HumaLOG INSULIN (NovoLOG) PER UNIT SC ×4 (08:06→20:34)
[2017-11-19] MEDS: SENOKOT S TAB PO ×2 (09:12→20:38)
[2017-11-19] MEDS: CALCIUM/VITAMIN D 500 MG TAB PO ×2 (09:12→20:38)
[2017-11-19] MEDS: HEPARIN SOD (PORCINE) 5000 UNITS/ML VIAL SC ×2 (09:13→20:39)
[2017-11-19 12:13] LABS: BEDSIDE GLUCOSE 155 MG/DL (83-110)
[2017-11-19] MEDS: CALCITRIOL 0.25 MCG CAP (S0169) PO (13:00)
[2017-11-19 16:35] LABS: BEDSIDE GLUCOSE 169 MG/DL (83-110)
[2017-11-19 20:27] LABS: BEDSIDE GLUCOSE 117 MG/DL (83-110)
[2017-11-19] MEDS: TAMSULOSIN 0.4 MG CAP PO (20:38)
[2017-11-20] MEDS: PERCOCET 5MG/325MG TAB PO ×3 (05:47→20:31)
[2017-11-20] MEDS: SLF 3 ML SYR IV ×3 (05:50→22:00)
[2017-11-20 05:51] LABS: HEMATOCRIT 30.4 % (42.0-52.0); HEMOGLOBIN 9.9 g/dl (13.5-17.5); MEAN CORPUSCULAR HEMOGLOBIN 26.3 pg (27.0-33.0); MEAN CORPUSCULAR HGB CONC 32.6 g/dl (32.0-36.5); MEAN CORPUSCULAR VOLUME 80.9 fl (80.0-96.0); PLATELET COUNT, AUTOMATED 242 10^3/uL (150-450); RED BLOOD COUNT 3.76 10^6/uL (4.30-6.10); RED CELL DISTRIBUTION WIDTH 19.4 % (11.5-14.5); WHITE BLOOD COUNT 6.5 10^3/uL (4.0-10.0)
[2017-11-20 05:59] LABS: IONIZED CALCIUM 4.9 MG/DL (4.5-5.3)
[2017-11-20 06:16] LABS: ALBUMIN 2.3 GM/DL (3.2-5.2); ANION GAP 8 MEQ/L (8-16); BLOOD UREA NITROGEN 28 MG/DL (7-18); CALCIUM LEVEL 9.4 MG/DL (8.8-10.2); CARBON DIOXIDE LEVEL 29 MEQ/L (21-32); CHLORIDE LEVEL 104 MEQ/L (98-107); CREATININE FOR GFR 2.69 MG/DL (0.70-1.30); GLUCOSE, FASTING 104 MG/DL (70-100); PHOSPHORUS LEVEL 5.3 MG/DL (2.5-4.9); POTASSIUM SERUM 4.2 MEQ/L (3.5-5.1); SODIUM LEVEL 141 MEQ/L (136-145)
[2017-11-20] MEDS: HYDROMORPHONE HCL 0.5 MG/ 0.5 ML SYRINGE (J1170 PER 1) IV (08:37)
[2017-11-20] MEDS: HEPARIN SOD (PORCINE) 5000 UNITS/ML VIAL SC ×2 (08:39→20:30)
[2017-11-20] MEDS: SENOKOT S TAB PO ×2 (08:41→20:30)
[2017-11-20] MEDS: HumaLOG INSULIN (NovoLOG) PER UNIT SC ×4 (08:41→20:22)
[2017-11-20] MEDS: CALCITRIOL 0.25 MCG CAP (S0169) PO (08:41)
[2017-11-20] MEDS: CALCIUM/VITAMIN D 500 MG TAB PO ×2 (08:41→20:29)
[2017-11-20 10:00] LABS: MAGNESIUM LEVEL 1.7 MG/DL (1.8-2.4)
[2017-11-20] MEDS: MAG SULF 1GM/100ML (MAG RUN) 1 GM in APPROPRIATE DILUENT 1 EA IV (11:16)
[2017-11-20 11:40] LABS: BEDSIDE GLUCOSE 131 MG/DL (83-110)
[2017-11-20] MEDS: BISACODYL 5 MG TAB PO (12:49)
[2017-11-20 17:38] LABS: BEDSIDE GLUCOSE 123 MG/DL (83-110)
[2017-11-20 20:21] LABS: BEDSIDE GLUCOSE 130 MG/DL (83-110)
[2017-11-20] MEDS: TAMSULOSIN 0.4 MG CAP PO (20:29)
[2017-11-20] MEDS: NICOTINE 14 MG/24 HR TRANSDERMAL TD (22:06)
[2017-11-21] MEDS: PERCOCET 5MG/325MG TAB PO ×4 (04:18→19:48)
[2017-11-21] MEDS: SLF 3 ML SYR IV ×3 (05:22→20:45)
[2017-11-21 06:06] LABS: HEMATOCRIT 28.3 % (42.0-52.0); HEMOGLOBIN 9.1 g/dl (13.5-17.5); MEAN CORPUSCULAR HEMOGLOBIN 26.2 pg (27.0-33.0); MEAN CORPUSCULAR HGB CONC 32.2 g/dl (32.0-36.5); MEAN CORPUSCULAR VOLUME 81.6 fl (80.0-96.0); PLATELET COUNT, AUTOMATED 226 10^3/uL (150-450); RED BLOOD COUNT 3.47 10^6/uL (4.30-6.10); RED CELL DISTRIBUTION WIDTH 19.5 % (11.5-14.5); WHITE BLOOD COUNT 5.8 10^3/uL (4.0-10.0)
[2017-11-21 06:08] LABS: IONIZED CALCIUM 4.8 MG/DL (4.5-5.3)
[2017-11-21 06:23] LABS: ALBUMIN 2.2 GM/DL (3.2-5.2); ANION GAP 10 MEQ/L (8-16); BLOOD UREA NITROGEN 30 MG/DL (7-18); CALCIUM LEVEL 9.2 MG/DL (8.8-10.2); CARBON DIOXIDE LEVEL 27 MEQ/L (21-32); CHLORIDE LEVEL 102 MEQ/L (98-107); GLOMERULAR FILTRATION RATE 27.2 (>42); GLUCOSE, FASTING 117 MG/DL (70-100); PHOSPHORUS LEVEL 5.1 MG/DL (2.5-4.9); POTASSIUM SERUM 4.2 MEQ/L (3.5-5.1); SODIUM LEVEL 139 MEQ/L (136-145)
[2017-11-21] MEDS: CALCITRIOL 0.25 MCG CAP (S0169) PO (08:07)
[2017-11-21] MEDS: CALCIUM/VITAMIN D 500 MG TAB PO ×2 (08:07→20:43)
[2017-11-21] MEDS: HumaLOG INSULIN (NovoLOG) PER UNIT SC ×4 (08:07→20:44)
[2017-11-21] MEDS: HEPARIN SOD (PORCINE) 5000 UNITS/ML VIAL SC ×2 (08:08→20:44)
[2017-11-21] MEDS: SENOKOT S TAB PO ×2 (08:08→20:43)
[2017-11-21 08:15] LABS: MAGNESIUM LEVEL 1.6 MG/DL (1.8-2.4)
[2017-11-21] MEDS: ONDANSETRON 4MG/2ML VIAL (J2405) IV ×2 (11:13→18:17)
[2017-11-21 11:48] LABS: BEDSIDE GLUCOSE 131 MG/DL (83-110)
[2017-11-21] MEDS: MAGNESIUM CITRATE 300 ML BTL PO (14:39)
[2017-11-21] MEDS: **hydrALAZINE HCL** 25 MG TAB PO ×2 (14:39→20:44)
[2017-11-21] MEDS: MAG SULF 1GM/100ML (MAG RUN) 1 GM in APPROPRIATE DILUENT 1 EA IV ×2 (14:42→15:22)
[2017-11-21 17:04] LABS: BEDSIDE GLUCOSE 166 MG/DL (83-110)
[2017-11-21 20:23] LABS: BEDSIDE GLUCOSE 114 MG/DL (83-110)
[2017-11-21] MEDS: TAMSULOSIN 0.4 MG CAP PO (20:43)
[2017-11-22] MEDS: PERCOCET 5MG/325MG TAB PO ×4 (00:09→21:37)
[2017-11-22] MEDS: SLF 3 ML SYR IV ×3 (06:00→20:25)
[2017-11-22 06:25] LABS: IONIZED CALCIUM 4.4 MG/DL (4.5-5.3)
[2017-11-22 06:42] LABS: ALBUMIN 2.5 GM/DL (3.2-5.2); ANION GAP 7 MEQ/L (8-16); BLOOD UREA NITROGEN 33 MG/DL (7-18); CALCIUM LEVEL 8.9 MG/DL (8.8-10.2); CARBON DIOXIDE LEVEL 28 MEQ/L (21-32); CHLORIDE LEVEL 101 MEQ/L (98-107); CREATININE FOR GFR 2.53 MG/DL (0.70-1.30); GLOMERULAR FILTRATION RATE 26.9 (>42); GLUCOSE, FASTING 95 MG/DL (70-100); PHOSPHORUS LEVEL 4.9 MG/DL (2.5-4.9); POTASSIUM SERUM 4.1 MEQ/L (3.5-5.1); SODIUM LEVEL 136 MEQ/L (136-145)
[2017-11-22] MEDS: HumaLOG INSULIN (NovoLOG) PER UNIT SC ×4 (07:30→20:24)
[2017-11-22] MEDS: SENOKOT S TAB PO ×2 (09:00→20:24)
[2017-11-22] MEDS: CALCITRIOL 0.25 MCG CAP (S0169) PO (09:09)
[2017-11-22] MEDS: HEPARIN SOD (PORCINE) 5000 UNITS/ML VIAL SC ×2 (09:09→20:24)
[2017-11-22] MEDS: CALCIUM/VITAMIN D 500 MG TAB PO ×2 (09:10→20:23)
[2017-11-22] MEDS: **hydrALAZINE HCL** 25 MG TAB PO ×2 (09:10→20:24)
[2017-11-22] MEDS: ONDANSETRON 4MG/2ML VIAL (J2405) IV (09:42)
[2017-11-22 11:09] LABS: MAGNESIUM LEVEL 2.6 MG/DL (1.8-2.4)
[2017-11-22 11:54] LABS: BEDSIDE GLUCOSE 144 MG/DL (83-110)
[2017-11-22] MEDS: NICOTINE 14 MG/24 HR TRANSDERMAL TD (12:44)
[2017-11-22 16:46] LABS: BEDSIDE GLUCOSE 216 MG/DL (83-110)
[2017-11-22 20:15] LABS: BEDSIDE GLUCOSE 99 MG/DL (83-110)
[2017-11-22] MEDS: TAMSULOSIN 0.4 MG CAP PO (20:23)
[2017-11-23] MEDS: SLF 3 ML SYR IV ×3 (04:37→21:39)
[2017-11-23] MEDS: PERCOCET 5MG/325MG TAB PO ×4 (04:37→21:33)
[2017-11-23 06:23] LABS: IONIZED CALCIUM 4.5 MG/DL (4.5-5.3)
[2017-11-23 06:45] LABS: ALBUMIN 2.2 GM/DL (3.2-5.2); ANION GAP 9 MEQ/L (8-16); BLOOD UREA NITROGEN 34 MG/DL (7-18); CALCIUM LEVEL 8.6 MG/DL (8.8-10.2); CARBON DIOXIDE LEVEL 28 MEQ/L (21-32); CHLORIDE LEVEL 102 MEQ/L (98-107); CREATININE FOR GFR 2.54 MG/DL (0.70-1.30); GLOMERULAR FILTRATION RATE 26.7 (>42); GLUCOSE, FASTING 116 MG/DL (70-100); PHOSPHORUS LEVEL 4.6 MG/DL (2.5-4.9); POTASSIUM SERUM 3.9 MEQ/L (3.5-5.1); SODIUM LEVEL 139 MEQ/L (136-145)
[2017-11-23] MEDS: HumaLOG INSULIN (NovoLOG) PER UNIT SC ×4 (08:48→21:00)
[2017-11-23] MEDS: CALCITRIOL 0.25 MCG CAP (S0169) PO (10:44)
[2017-11-23] MEDS: HEPARIN SOD (PORCINE) 5000 UNITS/ML VIAL SC ×2 (10:44→21:35)
[2017-11-23] MEDS: CALCIUM/VITAMIN D 500 MG TAB PO ×2 (10:44→21:34)
[2017-11-23] MEDS: **hydrALAZINE HCL** 25 MG TAB PO ×2 (10:45→21:35)
[2017-11-23] MEDS: SENOKOT S TAB PO ×2 (10:46→21:34)
[2017-11-23 11:45] LABS: BEDSIDE GLUCOSE 152 MG/DL (83-110)
[2017-11-23] MEDS: ONDANSETRON 4MG/2ML VIAL (J2405) IV ×2 (12:57→21:34)
[2017-11-23 16:37] LABS: BEDSIDE GLUCOSE 235 MG/DL (83-110)
[2017-11-23 20:03] LABS: BEDSIDE GLUCOSE 129 MG/DL (83-110)
[2017-11-23] MEDS: TAMSULOSIN 0.4 MG CAP PO (21:34)
[2017-11-24] MEDS: NICOTINE 14 MG/24 HR TRANSDERMAL TD ×2 (00:28→22:23)
[2017-11-24] MEDS: PERCOCET 5MG/325MG TAB PO ×3 (04:33→21:40)
[2017-11-24] MEDS: SLF 3 ML SYR IV ×3 (05:40→21:39)
[2017-11-24 06:09] LABS: IONIZED CALCIUM 4.6 MG/DL (4.5-5.3)
[2017-11-24 06:28] LABS: ALBUMIN 2.2 GM/DL (3.2-5.2); ANION GAP 6 MEQ/L (8-16); BLOOD UREA NITROGEN 30 MG/DL (7-18); CALCIUM LEVEL 8.2 MG/DL (8.8-10.2); CARBON DIOXIDE LEVEL 30 MEQ/L (21-32); CHLORIDE LEVEL 102 MEQ/L (98-107); CREATININE FOR GFR 2.48 MG/DL (0.70-1.30); GLOMERULAR FILTRATION RATE 27.5 (>42); GLUCOSE, FASTING 112 MG/DL (70-100); PHOSPHORUS LEVEL 5.1 MG/DL (2.5-4.9); POTASSIUM SERUM 4.1 MEQ/L (3.5-5.1); SODIUM LEVEL 138 MEQ/L (136-145)
[2017-11-24] MEDS: CALCIUM/VITAMIN D 500 MG TAB PO ×2 (08:28→21:38)
[2017-11-24] MEDS: CALCITRIOL 0.25 MCG CAP (S0169) PO (08:28)
[2017-11-24] MEDS: **hydrALAZINE HCL** 25 MG TAB PO ×2 (08:28→21:38)
[2017-11-24] MEDS: HEPARIN SOD (PORCINE) 5000 UNITS/ML VIAL SC ×2 (08:29→21:37)
[2017-11-24] MEDS: HumaLOG INSULIN (NovoLOG) PER UNIT SC ×4 (08:31→21:00)
[2017-11-24] MEDS: SENOKOT S TAB PO ×2 (08:34→21:38)
[2017-11-24 11:54] LABS: BEDSIDE GLUCOSE 125 MG/DL (83-110)
[2017-11-24] MEDS: ONDANSETRON 4MG/2ML VIAL (J2405) IV (11:57)
[2017-11-24 13:41] LABS: IRON (FE) 49 UG/DL (65-175); PERCENT SATURATION 28.7 % (19.7-50.0); TOTAL IRON BINDING CAPACITY 171 UG/DL (250-450)
[2017-11-24 16:51] LABS: BEDSIDE GLUCOSE 172 MG/DL (83-110)
[2017-11-24 20:24] LABS: BEDSIDE GLUCOSE 130 MG/DL (83-110)
[2017-11-24] MEDS: TAMSULOSIN 0.4 MG CAP PO (21:37)
[2017-11-24] MEDS: BISACODYL 5 MG TAB PO (21:41)
[2017-11-25] MEDS: PERCOCET 5MG/325MG TAB PO ×2 (05:38→20:16)
[2017-11-25] MEDS: SLF 3 ML SYR IV ×3 (05:39→20:15)
[2017-11-25 06:02] LABS: IONIZED CALCIUM 4.5 MG/DL (4.5-5.3)
[2017-11-25 06:16] LABS: ALBUMIN 2.1 GM/DL (3.2-5.2); ANION GAP 5 MEQ/L (8-16); BLOOD UREA NITROGEN 28 MG/DL (7-18); CALCIUM LEVEL 8.6 MG/DL (8.8-10.2); CARBON DIOXIDE LEVEL 30 MEQ/L (21-32); CHLORIDE LEVEL 101 MEQ/L (98-107); CREATININE FOR GFR 2.34 MG/DL (0.70-1.30); GLOMERULAR FILTRATION RATE 29.4 (>42); GLUCOSE, FASTING 135 MG/DL (70-100); PHOSPHORUS LEVEL 4.9 MG/DL (2.5-4.9); POTASSIUM SERUM 3.9 MEQ/L (3.5-5.1); SODIUM LEVEL 136 MEQ/L (136-145)
[2017-11-25] MEDS: CALCIUM/VITAMIN D 500 MG TAB PO ×2 (08:26→20:14)
[2017-11-25] MEDS: **hydrALAZINE HCL** 25 MG TAB PO (08:27)
[2017-11-25] MEDS: CALCITRIOL 0.25 MCG CAP (S0169) PO (08:27)
[2017-11-25] MEDS: SENOKOT S TAB PO ×2 (08:27→20:14)
[2017-11-25] MEDS: HEPARIN SOD (PORCINE) 5000 UNITS/ML VIAL SC ×2 (08:28→20:13)
[2017-11-25] MEDS: HumaLOG INSULIN (NovoLOG) PER UNIT SC ×4 (08:29→21:00)
[2017-11-25] MEDS: ONDANSETRON 4MG/2ML VIAL (J2405) IV (10:13)
[2017-11-25 10:15] LABS: BEDSIDE GLUCOSE 121 MG/DL (83-110)
[2017-11-25 11:34] LABS: BEDSIDE GLUCOSE 128 MG/DL (83-110)
[2017-11-25] MEDS: BISACODYL 5 MG TAB PO (14:09)
[2017-11-25] MEDS: amLODIPine 5 MG TAB PO (14:11)
[2017-11-25 17:13] LABS: BEDSIDE GLUCOSE 172 MG/DL (83-110)
[2017-11-25] MEDS: TAMSULOSIN 0.4 MG CAP PO (20:14)
[2017-11-25 20:25] LABS: BEDSIDE GLUCOSE 84 MG/DL (83-110)
[2017-11-25] MEDS: NICOTINE 14 MG/24 HR TRANSDERMAL TD (22:43)
[2017-11-26] MEDS: SLF 3 ML SYR IV ×2 (06:36→11:42)
[2017-11-26 07:02] LABS: IONIZED CALCIUM 4.6 MG/DL (4.5-5.3)
[2017-11-26 07:19] LABS: ALBUMIN 2.3 GM/DL (3.2-5.2); ANION GAP 8 MEQ/L (8-16); BLOOD UREA NITROGEN 26 MG/DL (7-18); CARBON DIOXIDE LEVEL 30 MEQ/L (21-32); CHLORIDE LEVEL 100 MEQ/L (98-107); CREATININE FOR GFR 2.22 MG/DL (0.70-1.30); GLOMERULAR FILTRATION RATE 31.2 (>42); GLUCOSE, FASTING 109 MG/DL (70-100); PHOSPHORUS LEVEL 5.2 MG/DL (2.5-4.9); POTASSIUM SERUM 4.5 MEQ/L (3.5-5.1); SODIUM LEVEL 138 MEQ/L (136-145)
[2017-11-26] MEDS: HEPARIN SOD (PORCINE) 5000 UNITS/ML VIAL SC (08:34)
[2017-11-26] MEDS: HumaLOG INSULIN (NovoLOG) PER UNIT SC ×2 (08:35→12:43)
[2017-11-26] MEDS: SENOKOT S TAB PO (08:35)
[2017-11-26] MEDS: CALCITRIOL 0.25 MCG CAP (S0169) PO (08:35)
[2017-11-26] MEDS: PERCOCET 5MG/325MG TAB PO ×2 (08:37→13:35)
[2017-11-26] MEDS: CALCIUM/VITAMIN D 500 MG TAB PO (08:38)
[2017-11-26] MEDS: amLODIPine 5 MG TAB PO (08:38)
[2017-11-26] MEDS: DARBEPOETIN 100 MCG/0.5 ML *NON-DIALYSIS* SYRINGE (J0881) SC (10:10)
[2017-11-26 11:17] LABS: FERRITIN 144 NG/ML (26-388)
[2017-11-26 11:26] LABS: BEDSIDE GLUCOSE 158 MG/DL (83-110)
== END 2017-11-26 14:15 | disposition home health service (06) | DRG 841 ==
LOC: M MSPAV 11-19 15:05 → M ED 10:12 → M ED INP 16:15 → M ICU 18:27
PROC: 0T9130Z Drainage of Left Kidney with Drainage Device, Percutaneous Approach (ICD-10-PCS; principal; 2017-11-14)
PROC: 0T9030Z Drainage of Right Kidney with Drainage Device, Percutaneous Approach (ICD-10-PCS; 2017-11-14)
PROC: 30233N1 Transfusion of Nonautologous Red Blood Cells into Peripheral Vein, Percutaneous Approach (ICD-10-PCS; 2017-11-15)
DX: C77.5 Secondary and unspecified malignant neoplasm of intrapelvic lymph nodes (principal); C79.51 Secondary malignant neoplasm of bone; C78.6 Secondary malignant neoplasm of retroperitoneum and peritoneum; E87.2 Acidosis; R64 Cachexia; N17.9 Acute kidney failure, unspecified; N13.1 Hydronephrosis with ureteral stricture, not elsewhere classified; D62 Acute posthemorrhagic anemia; N25.81 Secondary hyperparathyroidism of renal origin; C61 Malignant neoplasm of prostate; E87.5 Hyperkalemia; E83.51 Hypocalcemia; N18.3 Chronic kidney disease, stage 3 (moderate); I12.9 Hypertensive chronic kidney disease with stage 1 through stage 4 chronic kidney disease, or unspecified chronic kidney disease; E11.9 Type 2 diabetes mellitus without complications; E83.42 Hypomagnesemia; D50.9 Iron deficiency anemia, unspecified; Z66 Do not resuscitate; Z79.899 Other long term (current) drug therapy; M19.90 Unspecified osteoarthritis, unspecified site; E86.0 Dehydration; F17.200 Nicotine dependence, unspecified, uncomplicated; E83.39 Other disorders of phosphorus metabolism; K59.00 Constipation, unspecified

== ENCOUNTER 2017-11-27 10:28 | Outpatient (RCR) | payer MEDICARE, OTHER ==
[2017-11-28] MEDS ORDERED: DENOSUMAB (XGEVA) 120MG/1.7ML VIAL (J0897 PER 1MG) (FOR ONCOLOGY) SC (14:30)
== END 2017-12-21 ==
LOC: M ONCR 10:28
DX: C79.51 Secondary malignant neoplasm of bone (principal); C61 Malignant neoplasm of prostate
CPT/HCPCS: 77336

== ENCOUNTER 2017-12-06 11:18 | Emergency (ER) | payer MEDICARE ==
[2017-12-06 13:43] LABS: KETONE, URINE AUTO RFX NEGATIVE (NEGATIVE); MUCUS, URINE RFX SMALL (NEGATIVE); RBC, URINE AUTO RFX 18 /HPF (0-3); SPECIFIC GRAVITY UR AUTO RFX 1.012 (1.002-1.035); SQUAM EPITHELIAL CELL UR AURFX 0 /HPF (0-6)
[2017-12-06 13:46] LABS: KETONE, URINE AUTO RFX NEGATIVE (NEGATIVE); LEUKOCYTE ESTERASE UR AUTO RFX 3+ (NEGATIVE); MUCUS, URINE RFX SMALL (NEGATIVE); NITRITE, URINE AUTO RFX NEGATIVE (NEGATIVE); NITRITE, URINE AUTO RFX POSITIVE (NEGATIVE); RBC, URINE AUTO RFX 125 /HPF (0-3); SPECIFIC GRAVITY UR AUTO RFX 1.009 (1.002-1.035); SQUAM EPITHELIAL CELL UR AURFX 0 /HPF (0-6); WBC, URINE AUTO RFX 153 /HPF (0-3)
[2017-12-06 13:47] LABS: LEUKOCYTE ESTERASE UR AUTO RFX 3+ (NEGATIVE); WBC, URINE AUTO RFX 52 /HPF (0-3)
[2017-12-06] MEDS: NS 1,000 ML IV (14:31)
[2017-12-06] MEDS: METOCLOPRAMIDE INJ 10MG/2ML VIAL (J2765) IV (14:31)
[2017-12-06] MEDS: CIPROFLOXACIN 400 MG in APPROPRIATE DILUENT 1 EA IV (16:29)
== END 2017-12-06 17:48 | disposition home or self-care (01) ==
LOC: M ED 11:18
DX: N39.0 Urinary tract infection, site not specified (principal); D64.9 Anemia, unspecified; C61 Malignant neoplasm of prostate; I10 Essential (primary) hypertension; E11.9 Type 2 diabetes mellitus without complications; G89.29 Other chronic pain; F17.200 Nicotine dependence, unspecified, uncomplicated; Z79.899 Other long term (current) drug therapy; E87.5 Hyperkalemia; E55.9 Vitamin D deficiency, unspecified
CPT/HCPCS: J2765

== ENCOUNTER → 2017-12-06 | Outpatient (REF) | payer MEDICARE ==
[2017-12-06 12:04] LABS: BASO % 0.3 % (0.0-1.0); EOS # 0.1 10^3/uL (0.0-0.50); EOS % 2.1 % (0.0-3.0); HEMATOCRIT 28.5 % (42.0-52.0); HEMOGLOBIN 9.3 g/dl (13.5-17.5); IMMATURE GRANULOCYTE % 0.6 % (0-3.0); LYMPH # 0.7 10^3/uL (1.5-4.5); LYMPH % 10.9 % (24.0-44.0); MEAN CORPUSCULAR HEMOGLOBIN 26.7 pg (27.0-33.0); MEAN CORPUSCULAR HGB CONC 32.6 g/dl (32.0-36.5); MEAN CORPUSCULAR VOLUME 81.9 fl (80.0-96.0); MONO # 0.6 10^3/uL (0.0-0.8); MONO % 8.3 % (0.0-5.0); NEUTROPHILS # 5.2 10^3/uL (1.8-7.7); NEUTROPHILS % 77.8 % (36.0-66.0); PLATELET COUNT, AUTOMATED 292 10^3/uL (150-450); RED BLOOD COUNT 3.48 10^6/uL (4.30-6.10); RED CELL DISTRIBUTION WIDTH 20.4 % (11.5-14.5); WHITE BLOOD COUNT 6.6 10^3/uL (4.0-10.0)
[2017-12-06 12:35] LABS: ALBUMIN 2.9 GM/DL (3.2-5.2); ALBUMIN/GLOBULIN RATIO 0.56 (1.00-1.93); ALKALINE PHOSPHATASE 103 U/L (45-117); ALT/SGPT 20 U/L (12-78); ANION GAP 7 MEQ/L (8-16); AST/SGOT 20 U/L (7-37); BILIRUBIN,TOTAL 0.3 MG/DL (0.2-1.0); BLOOD UREA NITROGEN 21 MG/DL (7-18); CALCIUM LEVEL 7.3 MG/DL (8.8-10.2); CARBON DIOXIDE LEVEL 25 MEQ/L (21-32); CHLORIDE LEVEL 107 MEQ/L (98-107); CREATININE FOR GFR 1.81 MG/DL (0.70-1.30); GLOMERULAR FILTRATION RATE 39.5 (>42); GLUCOSE, FASTING 132 MG/DL (70-100); POTASSIUM SERUM 5.1 MEQ/L (3.5-5.1); SODIUM LEVEL 139 MEQ/L (136-145); TOTAL PROTEIN 8.1 GM/DL (6.4-8.2)
[2017-12-06 12:46] LABS: ESTIMATED AVERAGE GLUCOSE 128 MG/DL (60-110); HEMOGLOBIN A1c 6.1 %
[2017-12-06 13:54] LABS: TOTAL 25(OH) VITAMIN D 36.3 NG/ML (30.0-100.0)
== END ==
LOC: M SFHCSACK 10:27
DX: E87.5 Hyperkalemia (principal); I10 Essential (primary) hypertension; E11.9 Type 2 diabetes mellitus without complications; E55.9 Vitamin D deficiency, unspecified

== ENCOUNTER 2017-12-26 12:45 | Outpatient (CLI) | payer MEDICARE ==
[2017-12-26] MEDS: diphenhydrAMINE 25 MG CAP PO ×2 (14:32)
[2017-12-26] MEDS: ACETAMINOPHEN TAB 650MG DOSE (2X325MG) PO ×2 (14:32)
[2017-12-26 18:02] LABS: IMMEDIATE SPIN CROSSMATCH 1 2
== END 2017-12-26 21:02 | disposition home or self-care (01) ==
LOC: M OPCLI4PV 12:45 → M MSPAV 12:50 → M OPCLI4PV 21:02
PROVIDERS: Pediatrics
DX: C61 Malignant neoplasm of prostate (principal); D64.9 Anemia, unspecified; Z79.891 Long term (current) use of opiate analgesic; Z79.899 Other long term (current) drug therapy; C79.51 Secondary malignant neoplasm of bone
CPT/HCPCS: 36430

== ENCOUNTER → 2017-12-26 | Outpatient (REF) | payer MEDICARE | LOC: M LAB REF 13:31 | DX: C61 Malignant neoplasm of prostate (principal); C79.51 Secondary malignant neoplasm of bone ==

== ENCOUNTER → 2018-01-01 | Outpatient (CLI) | payer MEDICARE ==
[~2018-01-01] MED LIST changes: +CIPROFLOXACIN 500 MG TAB As Ordered; -GASTROGRAFIN SOLUTION 30ML (Q9963) As Ordered; +ISOVUE-300 61% 50ML VIAL (Q9967) As Ordered; -ISOVUE-370 76% 100ML VIAL (Q9967) As Ordered; +LIDOCAINE 1% MDV 20ML VIAL As Ordered
== END ==
LOC: M RADPRO 10:13
DX: N13.30 Unspecified hydronephrosis (principal); N13.9 Obstructive and reflux uropathy, unspecified; I50.1 Left ventricular failure, unspecified; K21.9 Gastro-esophageal reflux disease without esophagitis; D64.9 Anemia, unspecified; E11.9 Type 2 diabetes mellitus without complications; K85.90 Acute pancreatitis without necrosis or infection, unspecified; G62.9 Polyneuropathy, unspecified; Z79.891 Long term (current) use of opiate analgesic; Z79.899 Other long term (current) drug therapy; Z85.46 Personal history of malignant neoplasm of prostate
CPT/HCPCS: 50435

== ENCOUNTER → 2018-01-09 | Outpatient (CLI) | payer MEDICARE ==
[2018-01-09 11:03] LABS: BASO % 0.2 % (0.0-1.0); EOS # 0.1 10^3/uL (0.0-0.50); EOS % 2.3 % (0.0-3.0); HEMATOCRIT 30.2 % (42.0-52.0); HEMOGLOBIN 9.8 g/dl (13.5-17.5); IMMATURE GRANULOCYTE % 0.7 % (0-3.0); LYMPH # 0.7 10^3/uL (1.5-4.5); LYMPH % 13.1 % (24.0-44.0); MEAN CORPUSCULAR HEMOGLOBIN 28.7 pg (27.0-33.0); MEAN CORPUSCULAR HGB CONC 32.5 g/dl (32.0-36.5); MEAN CORPUSCULAR VOLUME 88.3 fl (80.0-96.0); MONO # 0.5 10^3/uL (0.0-0.8); MONO % 8.8 % (0.0-5.0); NEUTROPHILS # 4.2 10^3/uL (1.8-7.7); NEUTROPHILS % 74.9 % (36.0-66.0); PLATELET COUNT, AUTOMATED 248 10^3/uL (150-450); RED BLOOD COUNT 3.42 10^6/uL (4.30-6.10); RED CELL DISTRIBUTION WIDTH 17.8 % (11.5-14.5); WHITE BLOOD COUNT 5.6 10^3/uL (4.0-10.0)
[2018-01-09 11:19] LABS: ESTIMATED AVERAGE GLUCOSE 126 MG/DL (60-110)
[2018-01-09 11:36] LABS: ALBUMIN/GLOBULIN RATIO 0.59 (1.00-1.93); ALKALINE PHOSPHATASE 111 U/L (45-117); ALT/SGPT 17 U/L (12-78); ANION GAP 7 MEQ/L (8-16); AST/SGOT 26 U/L (7-37); BILIRUBIN,TOTAL 0.4 MG/DL (0.2-1.0); BLOOD UREA NITROGEN 24 MG/DL (7-18); CALCIUM LEVEL 8.5 MG/DL (8.8-10.2); CARBON DIOXIDE LEVEL 27 MEQ/L (21-32); CHLORIDE LEVEL 105 MEQ/L (98-107); CREATININE FOR GFR 1.47 MG/DL (0.70-1.30); GLOMERULAR FILTRATION RATE 50.3 (>42); GLUCOSE, FASTING 124 MG/DL (70-100); POTASSIUM SERUM 4.8 MEQ/L (3.5-5.1); SODIUM LEVEL 139 MEQ/L (136-145); TOTAL PROTEIN 8.1 GM/DL (6.4-8.2)
== END ==
LOC: M LAB 10:23
DX: E87.5 Hyperkalemia (principal); I10 Essential (primary) hypertension; E11.9 Type 2 diabetes mellitus without complications
CPT/HCPCS: 80053

== ENCOUNTER → 2018-01-09 | Outpatient (REF) | payer MEDICARE | LOC: M SFHCSACK 08:49 | DX: I10 Essential (primary) hypertension (principal); E87.5 Hyperkalemia; E11.9 Type 2 diabetes mellitus without complications; Z53.8 Procedure and treatment not carried out for other reasons ==

== ENCOUNTER → 2018-01-09 | Outpatient (CLI) | payer MEDICARE | LOC: M ONCR 10:51 | DX: C61 Malignant neoplasm of prostate (principal); Z79.51 Long term (current) use of inhaled steroids ==

== ENCOUNTER → 2018-01-24 | Outpatient (CLI) | payer MEDICARE | LOC: M RAD 07:53 | DX: R60.0 Localized edema (principal); M71.22 Synovial cyst of popliteal space [Baker], left knee | CPT/HCPCS: 93971 ==

== ENCOUNTER → 2018-02-28 | Outpatient (CLI) | payer MEDICARE ==
[~2018-02-28] MED LIST changes: -CIPROFLOXACIN 500 MG TAB As Ordered; +GASTROGRAFIN SOLUTION 30ML (Q9963) As Ordered; -ISOVUE-300 61% 50ML VIAL (Q9967) As Ordered; +ISOVUE-370 76% 100ML VIAL (Q9967) As Ordered; -LIDOCAINE 1% MDV 20ML VIAL As Ordered
== END ==
LOC: M RAD 11:14
DX: R93.5 Abnormal findings on diagnostic imaging of other abdominal regions, including retroperitoneum (principal); R91.8 Other nonspecific abnormal finding of lung field; C61 Malignant neoplasm of prostate
CPT/HCPCS: Q9963